=== PATIENT | male | born 1955 | race Caucasian/White ===

== ENCOUNTER → 2017-12-07 | Outpatient (CLI) | payer OTHER ==
[~2017-12-07] VITALS: Ht 152.4 cm; Wt 81.6 kg
[~2017-12-07] MED LIST: ASA-EC81 MG PO; MICARDIS40 MG PO; PROSCAR5 MG PO; VERAPAMIL ER240 MG PO
== END | disposition home or self-care (01) ==
LOC: PPHC 17:35
DX: R09.81 Nasal congestion (principal); R05 Cough

== ENCOUNTER 2019-04-16 08:33 | Outpatient (CLI) | payer OTHER | END 2019-04-16 09:41 | disposition home or self-care (01) | LOC: LAB 08:33 | DX: E03.8 Other specified hypothyroidism (principal); D50.8 Other iron deficiency anemias; E78.2 Mixed hyperlipidemia; I11.9 Hypertensive heart disease without heart failure; E56.8 Deficiency of other vitamins; N39.0 Urinary tract infection, site not specified; Z12.11 Encounter for screening for malignant neoplasm of colon; E55.9 Vitamin D deficiency, unspecified; N19 Unspecified kidney failure; E11.9 Type 2 diabetes mellitus without complications; R80.8 Other proteinuria; C18.0 Malignant neoplasm of cecum; K92.1 Melena ==

== ENCOUNTER 2019-04-17 09:00 | Outpatient (CLI) | payer OTHER | END 2019-04-17 15:00 | disposition home or self-care (01) | LOC: LAB 09:00 | DX: E03.8 Other specified hypothyroidism (principal); E78.2 Mixed hyperlipidemia; D50.8 Other iron deficiency anemias; I11.9 Hypertensive heart disease without heart failure; E56.8 Deficiency of other vitamins; N39.0 Urinary tract infection, site not specified; Z12.11 Encounter for screening for malignant neoplasm of colon; E55.9 Vitamin D deficiency, unspecified; N19 Unspecified kidney failure; E11.9 Type 2 diabetes mellitus without complications; R80.8 Other proteinuria; C18.0 Malignant neoplasm of cecum; K92.1 Melena ==

== ENCOUNTER 2019-09-01 07:49 | Outpatient (CLI) | payer OTHER | END 2019-09-01 14:29 | disposition home or self-care (01) | LOC: LAB 07:49 | DX: D50.8 Other iron deficiency anemias (principal); E03.8 Other specified hypothyroidism; E78.2 Mixed hyperlipidemia; I11.9 Hypertensive heart disease without heart failure; E56.8 Deficiency of other vitamins; N39.0 Urinary tract infection, site not specified; Z12.11 Encounter for screening for malignant neoplasm of colon; E55.9 Vitamin D deficiency, unspecified; N19 Unspecified kidney failure; E11.9 Type 2 diabetes mellitus without complications; R80.8 Other proteinuria; C18.0 Malignant neoplasm of cecum; K92.1 Melena ==

== ENCOUNTER 2023-04-29 06:16 | Emergency (ER) | payer OTHER ==
[~2023-04-29] VITALS: Ht 177.8 cm; Wt 83.0 kg
[2023-04-29] MEDS ORDERED: ATACAND32 MG (06:29)
[2023-04-29] MEDS ORDERED: MONTELUKAST SODI4 M1 (06:30)
[2023-04-29] MEDS ORDERED: CLARITIN5 MG (06:30)
[2023-04-29] MEDS ORDERED: ATORVASTATIN CA10 MG PO (06:30)
[2023-04-29] MEDS ORDERED: FLONASE16 GM NS (06:31)
== END 2023-04-29 11:13 | disposition home or self-care (01) ==
LOC: ER 06:16
DX: N20.1 Calculus of ureter (principal)